=== PATIENT | male | born 1965 | race Caucasian/White ===

== ENCOUNTER 2018-04-06 19:20 | Emergency (ER) | payer SELFPAY ==
[2018-04-06] MEDS ORDERED: IBUPROFEN 400 MG TAB ONE (19:48)
[2018-04-06] MEDS ORDERED: IBUPROFEN 200 MG TAB PO ONE (19:48)
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
== END 2018-04-06 21:16 | disposition home or self-care (01) ==
LOC: ER 19:20
DX: S33.5XXA Sprain of ligaments of lumbar spine, initial encounter (principal); V59.49XA Driver of pick-up truck or van injured in collision with other motor vehicles in traffic accident, initial encounter; F90.9 Attention-deficit hyperactivity disorder, unspecified type
CPT/HCPCS: 72100; 99284